=== PATIENT | female | born 1955 | race Caucasian/White ===

== ENCOUNTER → 2016-12-27 | Outpatient (CLI) | payer BC ==
--- NOTE | 2016-12-27 11:45 | WWHP ---
DATE OF SERVICE: 12/27/2016 CHIEF COMPLAINT: The patient is here for her routine gynecologic exam. HPI: This is a 61-year-old, G2, P2 with an LMP of 2006. She previously saw Dr. Guerrier for her gynecologic care. It has been about 2 years since her last pelvic exam. Her last Pap smear was in 2012. The patient denies any postmenopausal bleeding. She has been experiencing some urinary symptoms and has been treated for UTI about 3 times over the last 3 months. She was treated on 09/11/2016, 10/24/16 and 11/28/16. She received Cipro and Keflex for these UTIs and the third time she does not know the name of the antibiotic. She states she did have some improvement, but improvement did not last and she developed symptoms which consisted of urinary frequency and bladder pressure. She says when she does void it is fairly large amount and she is having these symptoms again. She denies any pain. She does get up about 6 times per night recently when normally it would be 2 to 3 times per night. PAST MEDICAL HISTORY: Hypothyroidism. Dr. Gaston is her primary care physician. MEDICATIONS: Levothyroxine 25 mcg daily. Allergies to SULFA and CODEINE both of which cause stomach upset and headache. PAST SURGICAL HISTORY: Knee surgery, tonsillectomy, breast lumpectomy in her 20s, which was benign, D&C in 2006, colonoscopy x3 and her most recent one was in 2013. PAST OB HISTORY: Two vaginal deliveries. PAST CARE MANAGER HISTORY: She believes she had some genital warts, which were removed. She has no other history of STDs. SOCIAL HISTORY: She denies tobacco and drug use and has about 4 to 5 alcoholic drinks per month. She has been since 1975 and is sexually active. She is a retired schoolteacher. FAMILY HISTORY: Aunt had ovarian cancer. Mother had CHF and needed a pacemaker. REVIEW OF SYSTEMS: Weight has been stable. She denies respiratory, cardiac, or GI problems. PHYSICAL EXAM: Initial blood pressure was 160/72. Repeat blood pressure 136/84. Height 5 feet 7 inches. Weight 173 pounds. Temperature 94.4, pulse 65. This a well-developed, well-nourished white female who is alert and oriented x3 in no acute distress. HEENT is within normal limits. NECK: Supple without mass or thyromegaly. CHEST AND LUNGS: Clear to auscultation. HEART: Regular rate and rhythm. Breasts are without mass or discharge. Axillary exam is negative for adenopathy. BACK: Negative for CVA tenderness. ABDOMEN: Soft, nontender, without palpable masses. PELVIC EXAM: External genitalia reveals mild atrophy without lesions. Cervix and vagina reveal mild atrophy without lesions. There is no significant prolapse noted. Uterus is anterior, nongravid size and nontender. There are no palpable adnexal masses or tenderness. Rectovaginal exam is negative for mass or tenderness and is negative for occult blood. EXTREMITIES: Nontender. IMPRESSION: 1. A 61-year-old menopausal female with normal gynecologic exam. 2. Recurrent urinary frequency and bladder pressure. Differential diagnosis will include urinary tract infection, incomplete emptying of the bladder and interstitial cystitis. 3. Elevated initial blood pressure with improvement. PLAN: 1. Pap smear was performed. 2. Self breast examination was discussed. 3. Mammogram was done in 08/16 and this will be repeated in one year. An order slip was given to patient for this. 4. Bone density screening will be done. She states it has been more than 10 years since her last one. 5. Osteoporosis prevention was discussed. 6. Clean-catch midstream UA and C&S will be obtained today. 7. She will follow up with Dr. Gaston for elevated blood pressures and she will do home blood pressure checks. 8. She will return in one year.
[2016-12-27 13:24] LABS: Appearance,Urine Clear (Clear); Bilirubin,Urine Negative (Negative); Glucose,Urine (UA) Negative (Negative); Ketones,Urine Negative (Negative); Leukocyte Esterase,Urine Negative (Negative); Nitrite,Urine Negative (Negative); PH, Urine 5.5 (5.0-8.0); Protein,Urine Negative (Negative); Specific Gravity,Urine 1.007 (1.001-1.035); UA Billing (MACRO vs. MICRO) CHEM; Urobilinogen,Urine <2.0 mg/dL (<2.0)
--- NOTE | 2016-12-27 13:31 | BD ---
EXAMINATION TYPE: MG DEXA axial skeleton. DATE OF EXAM: 12/27/2016 11:15 AM COMPARISON: NONE CLINICAL HISTORY: Postmenopausal female Height: 67 Weight: 171.3 FRAX RISK QUESTIONS: Alcohol (3 or more units per day): yes Family History (Parent hip fracture): no Glucocorticoids (More than 3mos): no (Ex: prednisone, prednisolone, methylprednisolone, dexamethasone, and hydrocortisone). History of Fracture in Adulthood: no Secondary Osteoporosis: 1. Type 1 Diabetes: no 2. Hyperthyroidism: no 3. Menopause before 45: no 4. Malnutrition: no 5. Chronic liver disease: no Rheumatoid Arthritis: no Current Tobacco Use: no RISK FACTORS HISTORY OF: Hip Fracture (Right/Left): no Spine Fracture: no History of Wrist Fracture: no Surgery to Spine/Hip(right/left)/Wrist (right/left): no Family History of Osteoporosis: no Active: yes Diet low in dairy products/other sources of calcium: no Postmenopausal woman: age 53 Lost more than 2 inches in height since high school: no Frequent falls: no Poor Health: no Adrenal Insufficiency: no MEDICATIONS: Thyroid Medications: levathyroxine How Lon years EXAM MEASUREMENTS: Bone mineral densitometry was performed using the [employer] System. Bone mineral density as measured about the Lumbar spine is: ----- L1-L4(G/cm2): 1.240 T Score Values are as follows: ----- L2: 0.7 ----- L3: 0.8 ----- L4: 0.7 ----- L1-L4: 0.5 Bone mineral density has: decreased-8.7 % since study of: 11.07.2005 Bone mineral density about the R hip (g/cm2): 1.078 Bone mineral density about the L hip (g/cm2): T Score values are as follows: -----R Neck: 0.3 -----L Neck: 1.1 -----R Intertrochanter: 0.5 -----L Intertrochanter: 0.7 Bone mineral density has: decreased -9.5 % since study of: 11.07.2005 IMPRESSION: No evidence for osteoporosis or osteopenia at this time. NOTE: T-SCORE=SD OF THE YOUNG ADULT MEAN.
== END | disposition home or self-care (01) ==
LOC: WWCWWP 09:46
PROVIDERS: ATTEND Obstetrics & Gynecology
DX: Z78.0 Asymptomatic menopausal state (principal); R39.16 Straining to void; R35.0 Frequency of micturition; Z87.440 Personal history of urinary (tract) infections
CPT/HCPCS: 77080; 81003; 87086

== ENCOUNTER → 2017-08-30 | Outpatient (CLI) | payer BC ==
--- NOTE | 2017-08-31 12:40 | MM ---
Reason for exam: screening (asymptomatic). Last mammogram was performed 1 year and 1 month ago. History: Patient is postmenopausal. Family history of breast cancer in maternal aunt at age 60. Benign excisional biopsy of the right breast, 1975. Physical Findings: A clinical breast exam by your physician is recommended on an annual basis and results should be correlated with mammographic findings. MG Screening Mammo w CAD Bilateral CC and MLO view(s) were taken. Prior study comparison: August 10, 2016, bilateral MG screening mammo w CAD. July 02, 2015, bilateral MG screening mammo w CAD. The breast tissue is heterogeneously dense. This may lower the sensitivity of mammography. There is chronic nodularity in the right breast, stable. No significant changes when compared with prior studies. ASSESSMENT: Benign, BI-RAD 2 RECOMMENDATION: Routine screening mammogram of both breasts in 1 year.
== END | disposition home or self-care (01) ==
LOC: RADMAMWWP 09:39
PROVIDERS: ATTEND Family Medicine
DX: Z12.31 Encounter for screening mammogram for malignant neoplasm of breast (principal)

== ENCOUNTER → 2018-06-27 | Outpatient (CLI) | payer BC ==
--- NOTE | 2018-06-27 17:10 | CONS ---
CONSULTATION DATE OF SERVICE: 06/27/2018 This 63-year-old lady has been evaluated in the sleep center for possible obstructive sleep apnea-hypopnea syndrome. HISTORY OF PRESENT ILLNESS/SLEEP-WAKE EVALUATION: Patient's usual sleep schedule basically 7 days a week is from 10 p.m. until 7:30 or 7:45 a.m. No problem with falling asleep, although she has a TV set in her bedroom. She sleeps on her side with snoring witnessed by her , witnessed episodes by him of stopped breathing during sleep, and also she wakes up from sleep with gasping for air, dry mouth, grinding teeth, sweating, nocturia up to 6 times per night. No history of hypnagogic hallucinations, sleep paralysis or cataplexy. She usually does not take naps. [place] Sleepiness Scale is 2. PAST MEDICAL HISTORY: Positive for hypothyroidism. PAST SURGICAL HISTORY: 1. Left knee surgery in 2001. 2. Tonsillectomy. MEDICATION: Levothyroxine. SOCIAL HISTORY: Negative for smoking. Alcohol consumption occasional. FAMILY HISTORY: Heart problems, arthritis, sinus headaches, snoring. REVIEW OF SYSTEMS: Multiple awakenings from sleep. PHYSICAL EXAMINATION: GENERAL A pleasant lady without distress. VITAL SIGNS: BP 186/87, HR 63, RR 12, height 5 feet 7 inches, weight 180.2, body mass index 28.1. HEENT: PERRLA, EOMI. Evaluation of oropharynx showed tongue protrudes midline; short distance between soft palate and posterior pharyngeal wall. Nose is slightly asymmetric; possibly nasal septum deviation. NECK: Supple. No JVD. Thyroid is not palpable. Neck is 14-1/4 inches in circumference. LUNGS: Clear to percussion and to auscultation. Good air exchange. No wheezing or rhonchi. HEART: S1, S2 regular. No murmurs, gallops or rubs. ABDOMEN: Soft and nontender. Bowel sounds are present. No organomegaly appreciated. EXTREMITIES : No clubbing or cyanosis. SPEED BELT SANDER: Awake, alert, and oriented X3. Cranial nerves 2 to 7 intact. There is no fasciculation or atrophy. noted. No focal deficits observed. IMPRESSION: 1. Snoring, awakenings from sleep with gasping for air, witnessed episodes of stopped breathing during sleep; obstructive sleep apnea-hypopnea syndrome. 2. Hypertension in the office today. 3. Possible nasal septal deviation. 4. Overweight. Body mass index 28.1. 5. Hypothyroidism. 6. Status post left knee surgery in 2001. 7. Status post tonsillectomy. PLAN: 1. Sleep study for evaluation of patient's breathing during sleep. 2. CPAP/BiPAP titration if sleep study confirms obstructive sleep apnea-hypopnea syndrome. 3. Preferable position during sleep on the side. 4. No driving if patient feels any sleepiness. Patient is aware of civil and criminal liability for unsafe driving. 5. I will see patient for follow-up visit to explain results of testing and following plan. Thank you very much for referring this patient for consultation. Sincerely, David Jacobson MD, PhD, FAASM Diplomat of [place] [employer] [place] [employer] Sales Planning Analyst of [facility] [place] MMOSEAS / ROBBY: [id number] /
== END | disposition home or self-care (01) ==
LOC: SLEEP 14:22
PROVIDERS: ATTEND Internal Medicine
DX: G47.33 Obstructive sleep apnea (adult) (pediatric) (principal); G47.63 Sleep related bruxism; R61 Generalized hyperhidrosis; R35.1 Nocturia; E66.3 Overweight; I10 Essential (primary) hypertension; E03.9 Hypothyroidism, unspecified; Z68.28 Body mass index [BMI] 28.0-28.9, adult; Z98.890 Other specified postprocedural states; Z90.89 Acquired absence of other organs; Z79.899 Other long term (current) drug therapy
CPT/HCPCS: 99211

== ENCOUNTER → 2018-09-02 | Outpatient (CLI) | payer BC ==
--- NOTE | 2018-09-03 11:46 | MM ---
Reason for exam: screening (asymptomatic). Last mammogram was performed 1 year ago. History: Patient is postmenopausal. Family history of breast cancer in maternal aunt at age 60. Benign excisional biopsy of the right breast, 1975. Physical Findings: A clinical breast exam by your physician is recommended on an annual basis and results should be correlated with mammographic findings. MG 3D Screening Mammo W/Cad Bilateral CC and MLO view(s) were taken. Prior study comparison: August 30, 2017, bilateral MG screening mammo w CAD. August 10, 2016, bilateral MG screening mammo w CAD. The breast tissue is heterogeneously dense. This may lower the sensitivity of mammography. There is no discrete abnormality. No significant changes when compared with prior studies. ASSESSMENT: Negative, BI-RAD 1 RECOMMENDATION: Routine screening mammogram of both breasts in 1 year.
== END | disposition home or self-care (01) ==
LOC: RADMAMWWP 09:38
PROVIDERS: ATTEND Family Medicine
DX: Z12.31 Encounter for screening mammogram for malignant neoplasm of breast (principal)
CPT/HCPCS: 77063; 77067

== ENCOUNTER → 2019-10-09 | Outpatient (CLI) | payer MEDICARE ==
--- NOTE | 2019-10-09 11:12 | BD ---
EXAMINATION TYPE: Axial Bone Density DATE OF EXAM: 10/09/2019 COMPARISON: 11.07.2005 CLINICAL HISTORY: 64 YR OLD FEMALE....ICD-10 CODE: M95.1 MENOPAUSAL AND FCS Height: 67.4 Weight: 165 FRAX RISK QUESTIONS: Family History (Parent hip fracture): YES RISK FACTORS HISTORY OF: Family History of Osteoporosis: YES, HER MOTHER WITH FXs Active: YES Postmenopausal woman: YES AT AGE 54 Hyperparathyroidism: NO Adrenal Insufficiency: NO MEDICATIONS: Thyroid Medications: YES, GENERIC SYNTHROID, FOR ABOUT 10YRS Additional Medications: BP MEDS, VIT D3 Additional History: HYPERTENSION, EXAM MEASUREMENTS: Bone mineral densitometry was performed using the [employer] System. Bone mineral density as measured about the Lumbar spine is: ----- L1-L4(G/cm2): 1.373 T Score Values are as follows: ----- L1: 0.4 ----- L2: 1.3 ----- L3: 2.1 ----- L4: 2.3 ----- L1-L4: 1.6 Bone mineral density has: Increased 10.9% since study of: 11.07.2005 Bone mineral density about the R hip (g/cm2): 1.068 Bone mineral density about the L hip (g/cm2): 1.164 T Score values are as follows: -----R Neck: 0.2 -----L Neck: 1.5 -----R Total: 0.5 -----L Total: 1.2 Bone mineral density has: Increased 1.4% since study of: 11.07.2005 FRAX%s: THERE IS A 15.2% CHANCE FOR A MAJOR OSTEOPOROTIC FX AND A 0.3% FOR HIP.....PROBABILITY FOR FX IN 10 YRS TIME IMPRESSION: Normal (Values between +1 and -1 indicate normal bone mass). Consider repeating this study in 5 year s or sooner if there is some new clinical indication. NOTE: T-SCORE=SD OF THE YOUNG ADULT MEAN.
--- NOTE | 2019-10-10 14:13 | MM ---
Reason for exam: screening (asymptomatic). Last mammogram was performed 1 year and 1 month ago. History: Patient is postmenopausal. Family history of breast cancer in maternal aunt at age 60. Benign excisional biopsy of the right breast, 1975. Physical Findings: A clinical breast exam by your physician is recommended on an annual basis and results should be correlated with mammographic findings. MG 3D Screening Mammo W/Cad Bilateral CC and MLO view(s) were taken. Prior study comparison: September 02, 2018, bilateral MG 3d screening mammo w/cad. August 30, 2017, bilateral MG screening mammo w CAD. The breast tissue is heterogeneously dense. This may lower the sensitivity of mammography. There is chronic nodularity in the right upper outer quadrant. There is no discrete abnormality. ASSESSMENT: Negative, BI-RAD 1 RECOMMENDATION: Routine screening mammogram of both breasts in 1 year.
== END | disposition home or self-care (01) ==
LOC: RADMAMWWP 09:55
PROVIDERS: ATTEND Family Medicine
DX: Z12.31 Encounter for screening mammogram for malignant neoplasm of breast (principal); N95.1 Menopausal and female climacteric states
CPT/HCPCS: 77063; 77067; 77080

== ENCOUNTER → 2020-09-13 | Outpatient (CLI) | payer MEDICARE ==
--- NOTE | 2020-09-13 11:55 | XR ---
EXAMINATION TYPE: XR chest 2V DATE OF EXAM: 09/13/2020 COMPARISON: NONE TECHNIQUE: PA and lateral views submitted. HISTORY: Cough FINDINGS: The lungs are clear and there is no pneumothorax, pleural effusion, or focal pneumonia. Hypertrophi c and degenerative change of the spine. Hyperinflation suggests COPD. Biapical pleural thickening. Sc oliosis noted. IMPRESSION: 1. No acute process. 2. Correlate for COPD.
== END | disposition home or self-care (01) ==
LOC: RADXRMAIN 11:34
PROVIDERS: ATTEND Family Medicine
DX: R09.89 Other specified symptoms and signs involving the circulatory and respiratory systems (principal)
CPT/HCPCS: 71046

== ENCOUNTER → 2020-10-12 | Outpatient (CLI) | payer MEDICARE ==
--- NOTE | 2020-10-14 13:50 | MM ---
Reason for exam: screening (asymptomatic). Last mammogram was performed 1 year ago. History: Patient is postmenopausal. Family history of breast cancer in maternal aunt at age 60. Benign excisional biopsy of the right breast, 1975. Physical Findings: A clinical breast exam by your physician is recommended on an annual basis and results should be correlated with mammographic findings. MG 3D Screening Mammo W/Cad Bilateral CC and MLO view(s) were taken. Prior study comparison: October 09, 2019, bilateral MG 3d screening mammo w/cad. September 02, 2018, bilateral MG 3d screening mammo w/cad. The breast tissue is heterogeneously dense. This may lower the sensitivity of mammography. There is chronic nodularity in the right breast upper outer quadrant. No significant changes when compared with prior studies. ASSESSMENT: Benign, BI-RAD 2 RECOMMENDATION: Routine screening mammogram of both breasts in 1 year.
== END | disposition home or self-care (01) ==
LOC: RADMAMWWP 16:16
PROVIDERS: ATTEND Family Medicine
DX: Z12.31 Encounter for screening mammogram for malignant neoplasm of breast (principal)
CPT/HCPCS: 77063; 77067

== ENCOUNTER → 2021-04-07 | Outpatient (CLI) | payer MEDICARE ==
[2021-04-07 10:57] VITALS: BMI 27.1
== END ==
LOC: DBWHC3 08:52
PROVIDERS: ATTEND Family Medicine
DX: R73.03 Prediabetes (principal); I10 Essential (primary) hypertension; E78.5 Hyperlipidemia, unspecified; J44.9 Chronic obstructive pulmonary disease, unspecified
CPT/HCPCS: 97802

== ENCOUNTER → 2023-12-20 | Outpatient (CLI) | payer MEDICARE ==
--- NOTE | 2023-12-21 13:50 | MM ---
Reason for Exam: Screening (asymptomatic). Last screening mammogram was performed 12 month(s) ago. Patient History: Menarche at age 11. First Full-Term at age 25. Postmenopausal. Patient has history of breast feeding. 1975, Benign Excisional Biopsy on the right side. Maternal aunt had breast cancer, age 60. Risk Values: Saundra 5 year model risk: 2.3%. NCI Lifetime model risk: 6.9%. Prior Study Comparison: 10/12/2020 Bilateral Screening Mammogram, [facility]. 11/11/2021 Bilateral Screening Mammogram, [facility]. 11/30/2022 Bilateral MG 3D screening mammo w/cad, [facility]. Tissue Density: The breasts are heterogeneously dense, which may obscure small masses. Findings: Analyzed By CAD. Right breast: There is no suspicious group of microcalcifications or new suspicious mass. Left breast: There is no suspicious group of microcalcifications or new suspicious mass. There is no suspicious group of microcalcifications or new suspicious mass. Overall Assessment: Negative, BI-RAD 1 Management: Screening Mammogram of both breasts in [address] [facility] will attempt to contact patient to return for supplemental views and ultrasound if indicated. Patient should continue monthly self-breast exams. A clinical breast exam by your physician is recommended on an annual basis. This exam should not preclude additional follow-up of suspicious palpable abnormalities. Note on Saundra scores and lifetime risk: 1. A Saundra score greater than 3% is considered moderate risk. If this is the case, consider specialist referral to assess eligibility for a risk reducing agent. 2. If overall lifetime risk for the development of breast cancer is 20% or higher, the patient may qualify for future screening with alternating mammogram and breast MRI. Electronically signed and approved by: Jake Apple DO
== END | disposition home or self-care (01) ==
LOC: RADMAMWWP 12:51
PROVIDERS: ATTEND Family Medicine
DX: Z12.31 Encounter for screening mammogram for malignant neoplasm of breast (principal); Z80.3 Family history of malignant neoplasm of breast; Z78.0 Asymptomatic menopausal state
CPT/HCPCS: 77063; 77067

== ENCOUNTER → 2024-08-07 | Outpatient (CLI) | payer MEDICARE | END | disposition home or self-care (01) | LOC: LABWHC1 13:54 | PROVIDERS: ATTEND Orthopaedic Surgery | DX: M25.552 Pain in left hip (principal); M70.62 Trochanteric bursitis, left hip; T84.84XA Pain due to internal orthopedic prosthetic devices, implants and grafts, initial encounter; M51.86 Other intervertebral disc disorders, lumbar region; M54.16 Radiculopathy, lumbar region; Z47.1 Aftercare following joint replacement surgery; Z96.642 Presence of left artificial hip joint | CPT/HCPCS: 36415; 85379; 85652; 86140 ==

== ENCOUNTER → 2025-01-22 | Outpatient (CLI) | payer MEDICARE ==
--- NOTE | 2025-01-22 10:06 | MM ---
Reason for Exam: Screening (asymptomatic). Last mammogram was performed 1 year(s) and 1 month(s) ago. Patient History: Menarche at age 11. First Full-Term at age 25. Postmenopausal. Patient has history of breast feeding. 1976, Benign Excisional Biopsy on the right side. Maternal aunt had breast cancer, age 60. Risk Values: Saundra 5 year model risk: 2.3%. NCI Lifetime model risk: 6.6%. Prior Study Comparison: 11/11/2021 Bilateral Screening Mammogram, [facility]. 11/30/2022 Bilateral MG 3D screening mammo w/cad, [facility]. 12/20/2023 Bilateral MG 3D screening mammo w/cad, [facility]. Tissue Density: The breasts are heterogeneously dense, which may obscure small masses. Findings: Analyzed By CAD. There is no suspicious group of microcalcifications or new suspicious mass in either breast. Overall Assessment: Benign, BI-RAD 2 Management: Screening Mammogram of both breasts in 1 year. . Patient should continue monthly self-breast exams. A clinical breast exam by your physician is recommended on an annual basis. This exam should not preclude additional follow-up of suspicious palpable abnormalities. Note on Saundra scores and lifetime risk: 1. A Saundra score greater than 3% is considered moderate risk. If this is the case, consider specialist referral to assess eligibility for a risk reducing agent. 2. If overall lifetime risk for the development of breast cancer is 20% or higher, the patient may qualify for future screening with alternating mammogram and breast MRI. [facility], , 01/22/2025 10:02 AM. Electronically signed and approved by: Nilesh Saldivar M.D. Radiologis
--- NOTE | 2025-01-22 11:10 | BD ---
EXAMINATION TYPE: Axial Bone Density DATE OF EXAM: 01/22/2025 CLINICAL HISTORY: 69 years old Female. ICD-10 CODE: Z78.0 ASYMP [place] , Additional History: Height: 66.7 Weight: 185 FRAX RISK QUESTIONS: Family History (Parent hip fracture): yes Secondary Osteoporosis: RISK FACTORS HISTORY OF: Surgery to Spine/Hip(right/left)/Wrist (right/left): left hip replacement When: 2023 MEDICATIONS: Thyroid Medications: Which medication: Levothyroxine How Long: about 15 years EXAM MEASUREMENTS: Bone mineral densitometry was performed using the [employer] System. Bone mineral density as measured about the Lumbar spine is: ----- L1-L4(G/cm2): 1.279 T Score Values are as follows: ----- L1: -0.7 ----- L2: 0.3 ----- L3: 2.2 ----- L4: 1.2 ----- L1-L4: 0.8 Z Score Values are as follows: ----- L1: 0.4 ----- L2: 1.3 ----- L3: 3.3 ----- L4: 2.2 ----- L1-L4: 1.9 Bone mineral density has: Decreased -6.8% since study of: 10-09-19 Bone mineral density about the R hip (g/cm2): 1.056 T Score values are as follows: -----R Neck: 0.0 -----R Total: 0.4 Z Score values are as follows: -----R Neck: 1.3 -----R Total: 1.4 Bone mineral density has: Decreased -1.1% since study of: 10-09-19 FRAX%s: The graph provided illustrates a 10.5% chance for a major osteoporotic fx and a 0.9% chance f or the hips probability for fx in 10 years time. IMPRESSION: Normal (Values between +1 and -1 indicate normal bone mass). Consider repeating this study in 5 year s or sooner if there is some new clinical indication. NOTE: T-SCORE=SD OF THE YOUNG ADULT MEAN. [facility], , 01/22/2025 11:08 AM
== END | disposition home or self-care (01) ==
LOC: RADMAMWWP 09:38
PROVIDERS: ATTEND Family Medicine
DX: Z12.31 Encounter for screening mammogram for malignant neoplasm of breast (principal); R92.333 Mammographic heterogeneous density, bilateral breasts; Z78.0 Asymptomatic menopausal state; Z80.3 Family history of malignant neoplasm of breast
CPT/HCPCS: 77063; 77067; 77080